=== PATIENT | female | born 1965 | race Caucasian/White ===

== ENCOUNTER 2017-02-04 11:51 | Day surgery (SDC) | payer BC ==
[2017-02-04 12:14] VITALS: BMI 23.0
[2017-02-04 14:49] LABS: BASOPHIL 0.7 % (0-2.0); EOSINOPHIL 5.3 % (0-4.5); MCH 29.4 pg (25.7-33.7); MEAN CELL VOLUME 89.3 fl (80-96); NEUTROPHILS 58.1 % (42.8-82.8); PLATELET COUNT 216 K/MM3 (134-434); RDW 12.7 % (11.6-15.6)
[2017-02-04 15:14] LABS: ALBUMIN 3.8 g/dl (3.4-5.0); ALK PHOS 56 U/L (45-117); ANION GAP 9 (8-16); BILIRUBIN,TOTAL 0.6 mg/dL (0.2-1.0); CALCIUM 8.8 mg/dL (8.5-10.1); CO2 30 mmol/L (21-32); CREATININE 0.8 mg/dL (0.55-1.02); GLUCOSE,RANDOM 78 mg/dL (74-106); SGOT/AST 14 U/L (15-37); SGPT/ALT 20 U/L (12-78); TOT PROT 6.8 g/dl (6.4-8.2)
[2017-02-04 15:14] LABS: PH,URINE 5.5 (5.0-8.0); URINE APPEARANCE CLEAR; URINE BILIRUBIN NEGATIVE (NEGATIVE); URINE BLOOD NEGATIVE (NEGATIVE); URINE COLOR LT. YELLOW; URINE GLUCOSE (UA) NEGATIVE (NEGATIVE); URINE KETONE NEGATIVE (NEGATIVE); URINE NITRITE NEGATIVE (NEGATIVE); URINE PROTEIN NEGATIVE (NEGATIVE); URINE UROBILINOGEN 0.2 mg/dL (0.2-1.0)
--- NOTE | 2017-02-04 15:26 | PDOC ---
History of Present Illness - General History Source: Patient Exam Limitations: No Limitations <Susan Ignacio - Last Filed: 02/04/17 15:21> - History of Present Illness Initial Comments: 02/04/17 15:31 51 y/o F with a PMHx of IBS, SCID, Sjogren's, Raynaud's, GERD presents to the ED with RLQ pain for 3 days. Patient was seen here 2 night ago for the same symptoms and was diagnosed with constipation by X-ray and discharged home. Patient states the symptoms have gotten more severe. She reports associated chills. She also reports recent sinus congestion/pressure and foul green nasal discharge. She reports multiple sinus infections in the past due to her SCID, but usually gets relief with sudafed and nasacort. Patient called her GI doctor who told her to go to the ED for further evaluation. Denies fever, nausea, vomiting, diarrhea. Denies urinary complaints. 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),) - Immunization History Td Vaccination: No TDAP Vaccination: No Immunization Up to Date: Yes - Suicide/Smoking/Psychosocial Hx Smoking Status: Yes Smoking History: Never smoked Have you smoked in the past 12 months: No Number of Cigarettes Smoked Daily: 0 If you are a former smoker, when did you quit?: 1996 Information on smoking cessation initiated: No 'Breaking Loose' booklet given: 03/03/14 Hx Alcohol Use: No Drug/Substance Use Hx: No Substance Use Type: Alcohol <Susan Ignacio - Last Filed: 02/04/17 15:21> <Hanna Self - Last Filed: 02/04/17 15:31> <Anu Vital - Last Filed: 02/04/17 20:05> - Past Medical History Allergies/Adverse Reactions: Allergies Allergy/AdvReac Type Severity Reaction Status Date / Time Penicillins Allergy Mild Rash Verified 11/06/17 12:10 Home Medications: Ambulatory Orders Fexofenadine HCl [Latosha] 180 mg PO DAILY 01/13/12 Ascorbic Acid [Vitamin C -] 500 mg PO BID 12/23/15 Cholecalciferol (Vitamin D3) [Vitamin D3] 2,000 units PO DAILY 12/23/15 Cyanocobalamin [Vitamin B12 -] 500 mcg PO Q2D 12/23/15 Ferrous Sulfate [Slow Fe] 65 mg PO DAILY 12/23/15 Magnesium 400 mg PO DAILY 12/23/15 Ranitidine [Zantac -] 150 mg PO BID #0 tablet 12/23/15 Montelukast Na [Singulair -] 10 mg PO HS 02/03/17 Polyethylene Glycol 3350 [Miralax (For Daily Use) -] 17 gm PO ONCE #1 bottle 08/15 Triamcinolone Acetonide [Nasacort] 2 spray NS DAILY 02/03/17 Review of Systems - Review of Systems Comments:: 02/04/17 15:31 GENERAL/CONSTITUTIONAL: (+) chills. No fever. No weakness. HEAD, EYES, EARS, NOSE AND THROAT: (+) nasal discharge, sinus congestion/ pressure. No change in vision. No ear pain or discharge. No sore throat. CARDIOVASCULAR: No chest pain or shortness of breath. RESPIRATORY: No cough, wheezing, or hemoptysis. GASTROINTESTINAL: (+) RLQ pain. No nausea, vomiting, diarrhea or constipation. GENITOURINARY: No dysuria, frequency, or change in urination. MUSCULOSKELETAL: No joint or muscle swelling or pain. No neck or back pain. SKIN: No rash NEUROLOGIC: No headache, vertigo, loss of consciousness, or change in strength/ sensation. ENDOCRINE: No increased thirst. No abnormal weight change. HEMATOLOGIC/LYMPHATIC: No anemia, easy bleeding, or history of blood clots. ALLERGIC/IMMUNOLOGIC: No hives or skin allergy. <Hanna Self - Last Filed: 02/04/17 15:31> *Physical Exam - Vital Signs Last Vital Signs Temp Pulse Resp BP Pulse Ox 98.3 F 68 16 119/87 99 02/04/17 12:10 02/04/17 12:10 02/04/17 12:10 02/04/17 12:10 02/04/17 12:10 <Susan Ignacio - Last Filed: 02/04/17 15:21> - Vital Signs Last Vital Signs Temp Pulse Resp BP Pulse Ox 98.3 F 68 16 119/87 99 02/04/17 12:10 02/04/17 12:10 02/04/17 12:10 02/04/17 12:10 02/04/17 12:10 - Physical Exam Comments: 02/04/17 15:31 GENERAL: Awake, alert, and fully oriented, in no acute distress HEAD: No signs of trauma EYES: PERRLA, EOMI, sclera anicteric, conjunctiva clear ENT: Auricles normal inspection, hearing grossly normal, nares patent, oropharynx clear without exudates. Moist mucosa NECK: Normal ROM, supple, no lymphadenopathy, JVD, or masses LUNGS: Breath sounds equal, clear to auscultation bilaterally. No wheezes, and no crackles HEART: Regular rate and rhythm, normal S1 and S2, no murmurs, rubs or gallops ABDOMEN: RLQ tenderness to palpation. No CVA tenderness. Soft, normoactive bowel sounds. No guarding, no rebound. No masses EXTREMITIES: Normal range of motion, no edema. Warm, well perfused. NEUROLOGICAL: A&Ox3 <Hanna Self - Last Filed: 02/04/17 15:31> - Vital Signs Last Vital Signs Temp Pulse Resp BP Pulse Ox 98.3 F 68 16 119/87 99 02/04/17 12:10 02/04/17 12:10 02/04/17 12:10 02/04/17 12:10 02/04/17 12:10 <Anu Vital - Last Filed: 02/04/17 20:05> ED Treatment Course - LABORATORY CBC & Chemistry Diagram: 02/04/17 14:35 02/04/17 14:35 - ADDITIONAL ORDERS Additional order review: Laboratory Results 02/04/17 02/04/17 14:35 14:21 Sodium 140 Potassium 3.7 Chloride 101 Carbon Dioxide 30 Anion Gap 9 BUN 8 D Creatinine 0.8 Creat Clearance w eGFR > 60 Random Glucose 78 D Calcium 8.8 Total Bilirubin 0.6 D AST 14 L D ALT 20 Alkaline Phosphatase 56 Total Protein 6.8 Albumin 3.8 Urine HCG, Qual Negative 02/04/17 14:35 RBC 4.79 MCV 89.3 MCHC 33.0 RDW 12.7 MPV 7.0 L Neutrophils % 58.1 D Lymphocytes % 23.4 D Monocytes % 12.5 H D Eosinophils % 5.3 H D Basophils % 0.7 - RADIOLOGY Radiology Studies Ordered: Category Date Time Status ABDOMEN & PELVIS CT WITH CONTR [CT] Stat CT Scan 02/04/17 14:11 Ordered <Susan Ignacio - Last Filed: 02/04/17 15:21> - LABORATORY CBC & Chemistry Diagram: 02/04/17 14:35 02/04/17 14:35 - ADDITIONAL ORDERS Additional order review: Laboratory Results 02/04/17 02/04/17 14:35 14:21 Sodium 140 Potassium 3.7 Chloride 101 Carbon Dioxide 30 Anion Gap 9 BUN 8 D Creatinine 0.8 Creat Clearance w eGFR > 60 Random Glucose 78 D Calcium 8.8 Total Bilirubin 0.6 D AST 14 L D ALT 20 Alkaline Phosphatase 56 Total Protein 6.8 Albumin 3.8 Urine HCG, Qual Negative 02/04/17 14:35 RBC 4.79 MCV 89.3 MCHC 33.0 RDW 12.7 MPV 7.0 L Neutrophils % 58.1 D Lymphocytes % 23.4 D Monocytes % 12.5 H D Eosinophils % 5.3 H D Basophils % 0.7 <Hanna Self - Last Filed: 02/04/17 15:31> - LABORATORY CBC & Chemistry Diagram: 02/04/17 14:35 02/04/17 14:35 - ADDITIONAL ORDERS Additional order review: Laboratory Results 02/04/17 02/04/17 02/04/17 14:35 14:21 14:21 Sodium 140 Potassium 3.7 Chloride 101 Carbon Dioxide 30 Anion Gap 9 BUN 8 D Creatinine 0.8 Creat Clearance w eGFR > 60 Random Glucose 78 D Calcium 8.8 Total Bilirubin 0.6 D AST 14 L D ALT 20 Alkaline Phosphatase 56 Total Protein 6.8 Albumin 3.8 Urine Color Lt. yellow Urine Appearance Clear Urine pH 5.5 Ur Specific [place] <= 1.005 Urine Protein Negative Urine Glucose (UA) Negative Urine Ketones Negative Urine Blood Negative Urine Nitrite Negative Urine Bilirubin Negative Urine Urobilinogen 0.2 Urine HCG, Qual Negative 02/04/17 14:35 RBC 4.79 MCV 89.3 MCHC 33.0 RDW 12.7 MPV 7.0 L Neutrophils % 58.1 D Lymphocytes % 23.4 D Monocytes % 12.5 H D Eosinophils % 5.3 H D Basophils % 0.7 - RADIOLOGY Radiology Studies Ordered: Category Date Time Status CHEST PA & LAT [RAD] Stat Radiology 02/04/17 19:33 Ordered <AmanuelLiama Laya - Last Filed: 02/04/17 20:05> Medical Decision Making - Medical Decision Making 02/04/17 15:23 51 yo F with h/o recurrent sinusitis, SCID, irritable bowel ( followed dr. andres) recently evaluated in ED for rlq pain, here with persistant sxs. no n/ v no f, does have chills. no urinary complaints. also c/o nasal pressure. sinus pain, nasal discharge, green. on exam awake alert . rlq ttp. no rebound no guarding. no cva tenderness. plan: ct a/p r/o appendicitis. differential irritable bowel, uti pyelo plan ct a /p labs ivf, pain control. <Susan Ignacio - Last Filed: 02/04/17 15:21> *DC/Admit/Observation/Transfer <Susan Ignacio - Last Filed: 02/04/17 15:21> - Attestations Scribe Attestion: 02/04/17 15:31 Documentation prepared by Hanna Self, acting as medical office receptionist for Susan Ignacio MD. <Hanna Self - Last Filed: 02/04/17 15:31> - Discharge Dispostion Admit: Yes <Anu Vital - Last Filed: 02/04/17 20:05> Diagnosis at time of Disposition: Appendicitis Qualifiers: Appendicitis type: acute appendicitis Acute appendicitis type: other Qualified Code(s): K35.89 - Other acute appendicitis; K35.89 - Other acute appendicitis - Referrals Referrals: Jon Mayo MD [Primary Care Provider] -
[2017-02-04] MEDS ORDERED: SODIUM CHLORIDE 1,000 ML IV SCH (18:30)
--- NOTE | 2017-02-04 20:16 | CONSULT ---
Consult - text type - Consultation Consultation Note: Pt seen and examined. Admitted for OR. See H&P for details. Dayo MILLER
--- NOTE | 2017-02-04 20:22 | HP ---
Admitting History and Physical - Primary Care Physician PCP: Jon Mayo - Admission Chief Complaint: RLQ pain, n/v History of Present Illness: 51yo F with medical history including multiple autoimmune conditions, frequent sinus infections (more since a vaccination last year, possibly pneumococcal), including a current one, IBS-D, GERD, h/o anemia of unknown etiology couple years ago, amenorrhea, esophageal spasms -- began having RLQ pain a couple of days ago, which she thought would improve, associated with anorexia and n/v. She came to ER Saturday night/Saturday morning, had AXR and was told she was constipated, given stool softeners and suppository and told to return if she got worse. She tried using the medications, and had an enema at home, but the pain persisted, and she has been unable to keep anything solid down for a couple of days. She went to see Dr. Reyes, her GI doctor, who sent her to ER for evaluation. She has sipped on water today and tolerated. Oral contrast is being evacuated multiple times since CT scan. No fevers. In the ER Saturday am early, wbc was 12, today it is 5. Afebrile. CT today shows mildly thickened appendix with no gross surrounding inflammatory changes but possible early acute appendicitis. No obstruction, no free air or fluid, no abscess. 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 brain lesions) Pulmonary: Yes: Asthma (no inhalers for several years) Gastrointestinal: Yes: GERD, Irritable Bowel Disease (with diarrhea), Other ( esophageal spasms) ...: No Heme/Onc: Yes: Anemia Rheumatology: Yes: Other (Sjogrens, Raynauds Phenomenon, untyped autoimmune disorder) ENT: Yes: Sinusitis - Past Surgical History Additional Past Surgical History: sinus surgery, toe surgery x2, right deltoid reattachment - Smoking History Smoking history: Current some day smoker Have you smoked in the past 12 months: Yes Aproximately how many cigarettes per day: 2 (smokes on weekends, only when drinking, amount varies) If you are a former smoker, when did you quit?: 1996 - but now smokes socially - Alcohol/Substance Use Hx Alcohol Use: Yes (socially/weekends) Number of Drinks Daily: 1 (varies on weekends) History of Substance Use: reports: None - Social History Usual Living Arrangement: Yes: With Spouse ADL: Independent Occupation: teacher, 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 Medications - Allergies Allergies/Adverse Reactions: Allergies Allergy/AdvReac Type Severity Reaction Status Date / Time Penicillins Allergy Mild Rash Verified 02/04/17 12:10 - Home Medications Home Medications: Ambulatory Orders Fexofenadine HCl [Latosha] 180 mg PO DAILY 01/13/12 Ascorbic Acid [Vitamin C -] 500 mg PO BID 12/23/15 Cholecalciferol (Vitamin D3) [Vitamin D3] 2,000 units PO DAILY 12/23/15 Cyanocobalamin [Vitamin B12 -] 500 mcg PO Q2D 12/23/15 Ferrous Sulfate [Slow Fe] 65 mg PO DAILY 12/23/15 Magnesium 400 mg PO DAILY 12/23/15 Ranitidine [Zantac -] 150 mg PO BID #0 tablet 12/23/15 Montelukast Na [Singulair -] 10 mg PO HS 02/03/17 Polyethylene Glycol 3350 [Miralax (For Daily Use) -] 17 gm PO ONCE #1 bottle 08/15 Triamcinolone Acetonide [Nasacort] 2 spray NS DAILY 02/03/17 Family Disease History - Family Disease History Family Disease History: CA: Mother ( 29 years ago of uterine CA) Other Family History: aunt had ovarian CA young; maternal side with cancers; also weight-related DM in family Review of Systems - Review of Systems Constitutional: reports: Loss of Appetite. denies: Chills, Fever Eyes: denies: Blurred Vision, Recent Change in Vision HENT: reports: Difficult Swallowing (sometimes gets esophageal spasms), Hearing Loss (left side vestibular loss), Nasal Congestion. denies: Throat Pain Neck: denies: Stiffness, Tenderness Cardiovascular: denies: Chest Pain, Palpitations Respiratory: reports: Cough (from postnasal drip). denies: SOB, Wheezing Gastrointestinal: reports: Abdominal Pain (with hpi), Diarrhea, Nausea (with hpi ), Vomiting (with hpi). denies: Constipation Genitourinary: denies: Burning, Dysuria Musculoskeletal: denies: Back Pain, Joint Pain Integumentary: denies: Change in Color, Rash Neurological: reports: Dizziness (at times). denies: Headache Endocrine: denies: Increased Hunger, Increased Thirst Psychiatric: denies: Anxiety, Depression Physical Examination Vital Signs: Vital Signs Temperature 98.3 F 02/04/17 12:10 Pulse Rate 68 02/04/17 12:10 Respiratory Rate 16 02/04/17 12:10 Blood Pressure 119/87 02/04/17 12:10 O2 Sat by Pulse Oximetry (%) 99 02/04/17 12:10 Constitutional: Yes: Well Nourished, No Distress, Calm Eyes: Yes: Conjunctiva Clear, EOM Intact HENT: Yes: Atraumatic, Normocephalic, Nasal Congestion (mild) Neck: Yes: Supple, Trachea Midline Cardiovascular: Yes: Regular Rate and Rhythm. No: Murmur Respiratory: Yes: Regular, CTA Bilaterally. No: Wheezes Gastrointestinal: Yes: Normal Bowel Sounds, Soft, Distention (mild), Tenderness (RLQ with referred tenderness from LLQ/suprapubic to RLQ, no guarding, focal rebound). No: Tenderness, Epigastrium ...Rectal Exam: Yes: Deferred Renal/: No: CVA Tenderness - Left, CVA Tenderness - Right Musculoskeletal: No: Joint Stiffness, Joint Swelling Extremities: No: Cool, Cyanosis Edema: No Peripheral Pulses WNL: Yes Integumentary: Yes: Body Piercing (umbilical, nasal). No: Jaundice, Rash Neurological: Yes: Alert, Oriented. No: Unsteady Gait Psychiatric: Yes: Alert, Oriented Labs: CBC, BMP 02/04/17 14:35 02/04/17 14:35 CMP Sodium 140 mmol/L (136-145) 02/04/17 14:35 Potassium 3.7 mmol/L (3.5-5.1) 02/04/17 14:35 Chloride 101 mmol/L (98-107) 02/04/17 14:35 Carbon Dioxide 30 mmol/L (21-32) 02/04/17 14:35 Anion Gap 9 (8-16) 02/04/17 14:35 BUN 8 mg/dL (7-18) D 02/04/17 14:35 Creatinine 0.8 mg/dL (0.55-1.02) 02/04/17 14:35 Creat Clearance w eGFR > 60 (>60) 02/04/17 14:35 Random Glucose 78 mg/dL (74-106) D 02/04/17 14:35 Calcium 8.8 mg/dL (8.5-10.1) 02/04/17 14:35 Total Bilirubin 0.6 mg/dL (0.2-1.0) D 02/04/17 14:35 AST 14 U/L (15-37) L D 02/04/17 14:35 ALT 20 U/L (12-78) 02/04/17 14:35 Alkaline Phosphatase 56 U/L (45-117) 02/04/17 14:35 Total Protein 6.8 g/dl (6.4-8.2) 02/04/17 14:35 Albumin 3.8 g/dl (3.4-5.0) 02/04/17 14:35 wbc was 12 yesterday early am in ER Imaging - Results Cat Scan: Report Reviewed (thickened appendix, possible early appendicitis), Image Reviewed Problem List - Problems (1) Acute appendicitis with localized peritonitis Assessment/Plan: admit to surgery NPO/IVF until after surgery pain meds prn perioperative antibiotics Discussed with patient risks, benefits and alternatives of laparoscopic possible open appendectomy, including but not limited to bleeding, infection, injury to adjacent structures, leak or injury, intraabdominal abscess, need for further procedures, ; alternatives include antibiotics, delayed or no surgery - risks of this include failure of nonoperative therapy, perforation, sepsis, recurrence, . Patient desires to proceed with operation - will take to OR for above. Informed consent signed for same. GI/DVT prophylaxis as indicated Code(s): K35.3 - ACUTE APPENDICITIS WITH LOCALIZED PERITONITIS (2) Sinusitis Code(s): J32.9 - CHRONIC SINUSITIS, UNSPECIFIED Qualifiers: Sinusitis location: unspecified location Chronicity: acute Recurrence: recurrent Qualified Code(s): J01.91 - Acute recurrent sinusitis, unspecified; J01.91 - Acute recurrent sinusitis, unspecified (3) Vertigo Code(s): R42 - DIZZINESS AND GIDDINESS (4) Sjogren's syndrome Code(s): M35.00 - SICCA SYNDROME, UNSPECIFIED Qualifiers: Sjogren's organ involvement: unspecified organ involvement Qualified Code(s): M35.00 - Sicca syndrome, unspecified; M35.00 - Sicca syndrome , unspecified; M35.00 - Sicca syndrome, unspecified; M35.00 - Sicca syndrome, unspecified (5) Raynaud's phenomenon Code(s): I73.00 - RAYNAUD'S SYNDROME WITHOUT GANGRENE Qualifiers: Raynaud?s-associated gangrene presence: without gangrene Qualified Code(s): I73.00 - Raynaud's syndrome without gangrene; I73.00 - Raynaud's syndrome without gangrene (6) Autoimmune disease, not elsewhere classified Code(s): M35.9 - SYSTEMIC INVOLVEMENT OF CONNECTIVE TISSUE, UNSPECIFIED
[2017-02-04 21:00] LABS: INR 1.06 (0.82-1.09)
[2017-02-04] MEDS ORDERED: morphine CARPU-JECT 2 MG/1 ML DISP.SYRIN IVPUSH PRN (21:17)
[2017-02-04] MEDS ORDERED: ONDANSETRON 4 MG/2 ML VIAL IVPUSH PRN (21:22)
--- NOTE | 2017-02-04 22:03 | CON.ID ---
Consult Consult Specialty:: infectious diseases Reason for Consultation:: appendicitis,peritonitis abx mgmt - History of Present Illness Chief Complaint: abd pain History of Present Illness: 51yo F with medical history including multiple autoimmune conditions, , IBS-D, GERD, h/o anemia amenorrhea, esophageal spasms admitted for RLQ pain since couple of days which she thought would improve, associated with anorexia and n/ v. She came to ER Saturday night/Saturday morning, had AXR and was told she was constipated, given stool softeners and suppository and told to return if she got worse. patient did not improve and came back to the er and was diagnosed with appendicitis, surgery evaluated her and patient was taken to the operating room and underwent appendectomy patients main complain is abd pain and no flatus yet - History Source History Provided By: Patient Limitations to Obtaining History: No Limitations - Past Medical History EVENT DECORATOR: Yes: Other (Nonspecific brain lesions) Pulmonary: Yes: Asthma (no inhalers for several years) Gastrointestinal: Yes: GERD, Irritable Bowel Disease (with diarrhea), Other ( esophageal spasms) ...: No Rheumatology: Yes: Other (Sjogrens, Raynauds Phenomenon, untyped autoimmune disorder) ENT: Yes: Sinusitis - Alcohol/Substance Use Hx Alcohol Use: Yes (socially/weekends) Number of Drinks Daily: 1 (varies on weekends) History of Substance Use: reports: None - Smoking History Smoking history: Current some day smoker Have you smoked in the past 12 months: Yes Aproximately how many cigarettes per day: 2 (smokes on weekends, only when drinking, amount varies) If you are a former smoker, when did you quit?: 1996 - but now smokes socially - Social History Usual Living Arrangement: With Spouse ADL: Independent Occupation: teacher, 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 Medications - Allergies Allergies/Adverse Reactions: Allergies Allergy/AdvReac Type Severity Reaction Status Date / Time Penicillins Allergy Mild Rash Verified 02/04/17 12:10 - Home Medications Home Medications: Ambulatory Orders Fexofenadine HCl [Latosha] 180 mg PO DAILY 01/13/12 Ascorbic Acid [Vitamin C -] 500 mg PO BID 12/23/15 Cholecalciferol (Vitamin D3) [Vitamin D3] 2,000 units PO DAILY 12/23/15 Cyanocobalamin [Vitamin B12 -] 500 mcg PO Q2D 12/23/15 Magnesium 400 mg PO DAILY 12/23/15 Ranitidine [Zantac -] 150 mg PO BID #0 tablet 12/23/15 Montelukast Na [Singulair -] 10 mg PO HS 02/03/17 Triamcinolone Acetonide [Nasacort] 2 spray NS DAILY 02/03/17 Acetaminophen [Tylenol .Regular Strength -] 650 mg PO Q6H PRN #0 tablet Fluconazole [Diflucan] 150 mg PO ONCE PRN #2 tablet 02/05/17 Ibuprofen [Motrin -] 600 mg PO Q6H PRN #0 tablet 02/05/17 Family Disease History - Family Disease History Family Disease History: CA: Mother ( 29 years ago of uterine CA) Other Family History: aunt had ovarian CA young; maternal side with cancers; also weight-related DM in family Review of Systems - Review of Systems Constitutional: reports: Other Eyes: reports: No Symptoms HENT: reports: No Symptoms Neck: reports: No Symptoms Cardiovascular: reports: No Symptoms Respiratory: reports: No Symptoms Gastrointestinal: reports: Abdominal Pain, Vomiting Genitourinary: reports: No Symptoms Musculoskeletal: reports: No Symptoms Integumentary: reports: No Symptoms Neurological: reports: No Symptoms Endocrine: reports: No Symptoms Hematology/Lymphatic: reports: No Symptoms Psychiatric: reports: No Symptoms Physical Exam Vital Signs: Vital Signs Temperature 97.7 F 02/04/17 20:23 Pulse Rate 77 02/04/17 20:23 Respiratory Rate 18 02/04/17 20:23 Blood Pressure 116/84 02/04/17 20:23 O2 Sat by Pulse Oximetry (%) 97 02/04/17 20:23 Constitutional: Yes: Well Nourished, Calm, Moderate Distress Eyes: Yes: Conjunctiva Clear HENT: Yes: Atraumatic, Normocephalic Neck: Yes: Supple Cardiovascular: Yes: Regular Rate and Rhythm Respiratory: Yes: Regular, CTA Bilaterally Gastrointestinal: Yes: Soft, Hypoactive Bowel Sounds Musculoskeletal: Yes: WNL Extremities: Yes: WNL Wound/Incision: Yes: Clean/Dry, Dressing Dry and Intact Neurological: Yes: Alert, Oriented Psychiatric: Yes: Alert, Oriented Labs: CBC, BMP 02/04/17 14:35 02/04/17 14:35 Imaging - Results Chest X-ray: Report Reviewed, Image Reviewed Cat Scan: Report Reviewed, Image Reviewed Assessment/Plan Problem List - Problems (1) Acute appendicitis with localized peritonitis Code(s): K35.3 - ACUTE APPENDICITIS WITH LOCALIZED PERITONITIS (2) Sinusitis Code(s): J32.9 - CHRONIC SINUSITIS, UNSPECIFIED Qualifiers: Sinusitis location: unspecified location Chronicity: acute Recurrence: recurrent Qualified Code(s): J01.91 - Acute recurrent sinusitis, unspecified; J01.91 - Acute recurrent sinusitis, unspecified (3) Vertigo Code(s): R42 - DIZZINESS AND GIDDINESS (4) Sjogren's syndrome Code(s): M35.00 - SICCA SYNDROME, UNSPECIFIED Qualifiers: Sjogren's organ involvement: unspecified organ involvement Qualified Code(s): M35.00 - Sicca syndrome, unspecified; M35.00 - Sicca syndrome , unspecified; M35.00 - Sicca syndrome, unspecified; M35.00 - Sicca syndrome, unspecified (5) Raynaud's phenomenon Code(s): I73.00 - RAYNAUD'S SYNDROME WITHOUT GANGRENE Qualifiers: Raynaud?s-associated gangrene presence: without gangrene Qualified Code(s): I73.00 - Raynaud's syndrome without gangrene; I73.00 - Raynaud's syndrome without gangrene (6) Autoimmune disease, not elsewhere classified Code(s): M35.9 - SYSTEMIC INVOLVEMENT OF CONNECTIVE TISSUE, UNSPECIFIED patient allergic to pcn patient got couple of doses of meropenam plan continue according to surgery will stop abx pain main issue
[2017-02-04] MEDS ORDERED: MEROPENEM 1 GM PUSH 20 ML IVPUSH SCH (22:15)
[2017-02-04] MEDS ORDERED: MIDAZOLAM HCL 2 MG/2 ML SINGLE DOSE VIAL ONE (22:15)
[2017-02-04] MEDS ORDERED: PROPOFOL 20 ML ONE ×2 (22:15)
[2017-02-04] MEDS ORDERED: ROCURONIUM BROMIDE 50 MG/5 ML VIAL ONE (22:16)
[2017-02-04] MEDS ORDERED: DEXAMETHASONE SOD PHOSPHATE 4 MG/1 ML VIAL ONE (22:16)
[2017-02-04] MEDS ORDERED: LIDOCAINE HCL/PF 2% SDV 5ML VIAL ONE (22:16)
[2017-02-04] MEDS ORDERED: ONDANSETRON 4 MG/2 ML VIAL ONE (22:16)
[2017-02-04] MEDS ORDERED: SUCCINYLCHOLINE CHLORIDE 200 MG/10 ML VIAL ONE (22:17)
[2017-02-04 22:18] LABS: URINE LEUK ESTERASE Negative (NEGATIVE)
[2017-02-04] MEDS ORDERED: GLYCOPYRROLATE 0.2 MG/1 ML VIAL ONE ×2 (22:21→23:30)
[2017-02-04] MEDS ORDERED: MEROPENEM 1 GM VIAL (RESTRICTED TO ID) IVPB ONE (22:30)
[2017-02-04] MEDS ORDERED: IBUPROFEN 800 MG/8 ML IJ IVPB PRN (23:02)
[2017-02-04] MEDS ORDERED: LACTATED RINGERS SOLUTION 1,000 ML IV SCH (23:15)
[2017-02-04] MEDS ORDERED: NEOSTIGMINE METHYLSULFATE 0.5 MG/ML - 10 ML MDV ONE (23:30)
[2017-02-04] MEDS ORDERED: BUPIVACAINE HCL/PF (5 MG/ML) 30 ML VIAL IJ ONE (23:37)
--- NOTE | 2017-02-05 00:03 | OP ---
Operative Note - Note: Operative Date: 02/04/17 Pre-Operative Diagnosis: acute appendicitis with localized peritonitis Operation: laparoscopic appendectomy Findings: mildly inflamed/injected appendix, no fluid in RLQ Post-Operative Diagnosis: Same as Pre-op Surgeon: Chava Bar Anesthesiologist/BRANCH LOGISTICS SUPERVISOR: Marina Thompson Anesthesia: General, Local (10ml 0.5% marcaine) Specimens Removed: appendix to pathology Estimated Blood Loss (mls): 2 Drains & Tubes with Location: [place] removed at end of case Drains, Volume Out (mls): 100 (UOP) Fluid Volume Replaced (mls): 1,000 (crystalloid) Operative Report Dictated: Yes
[2017-02-05] MEDS ORDERED: ACETAMINOPHEN INJECTION 100 ML IVPB ONE (00:05)
[2017-02-05] MEDS: ACETAMINOPHEN 1000 MG/100 ML VIAL (NON FORMULARY) IVPB ONE ×2 (00:10→07:28)
[2017-02-05] MEDS ORDERED: oxyCODONE HCL 5 MG TABLET PO PRN (00:12)
[2017-02-05] MEDS ORDERED: morphine CARPU-JECT 2 MG/1 ML DISP.SYRIN IVPUSH PRN ×2 (00:14→00:20)
[2017-02-05] MEDS ORDERED: LACTATED RINGERS SOLUTION 1,000 ML IV SCH (00:20)
[2017-02-05] MEDS ORDERED: ONDANSETRON 4 MG/2 ML VIAL IVPUSH PRN (00:20)
[2017-02-05] MEDS: oxyCODONE HCL 5 MG TABLET PO PRN ×2 (01:20→08:35)
[2017-02-05] MEDS ORDERED: MEROPENEM 1 GM PUSH 20 ML IVPUSH SCH (02:00)
[2017-02-05] MEDS ORDERED: MEROPENEM 1 GM in DEXTROSE 5%-WATER - 100 ML IVPB SCH (02:00)
[2017-02-05] MEDS ORDERED: IBUPROFEN 800 MG/8 ML IJ IVPB ONE ×2 (03:00)
[2017-02-05] MEDS: ACETAMINOPHEN 325 MG TABLET (FP) PO PRN ×2 (05:57→10:14)
[2017-02-05] MEDS: MEROPENEM 1 GM PUSH 20 ML IVPUSH SCH ×2 (05:58→14:07)
[2017-02-05] MEDS ORDERED: ACETAMINOPHEN 325 MG TABLET (FP) PO PRN (06:00)
--- NOTE | 2017-02-05 08:36 | PN ---
Progress Note (short form) - Note Progress Note: Post op day#1.S/P Laproscopin appendectomy under [place] uneventful.Patient stable.No any anesthesia related problem.Patient DC from the anesthesia care.
[2017-02-05] MEDS ORDERED: IBUPROFEN 600 MG TABLET (FP) PO PRN ×2 (09:00)
[2017-02-05] MEDS ORDERED: RANITIDINE HCL 150 MG TABLET (FP) PO SCH ×2 (10:00)
[2017-02-05] MEDS ORDERED: FEXOFENADINE HCL 180 MG PO SCH (10:00)
[2017-02-05] MEDS ORDERED: FLUTICASONE PROP 0.05% 16 GM NASAL SPRAY NS SCH (10:00)
[2017-02-05] MEDS ORDERED: ASCORBIC ACID 500 MG TABLET (FP) PO SCH ×2 (10:00)
[2017-02-05] MEDS ORDERED: CHOLECALCIFEROL (VITAMIN D3) 1,000 UNIT TABLET (FP) PO SCH (10:00)
[2017-02-05] MEDS ORDERED: TRIAMCINOLONE ACETONIDE NS SCH (10:00)
[2017-02-05] MEDS ORDERED: LORATADINE 10 MG TABLET PO SCH (10:00)
--- NOTE | 2017-02-05 11:04 | DS ---
Physical Examination Vital Signs: Vital Signs Temperature 98.4 F 02/05/17 09:00 Pulse Rate 60 02/05/17 09:00 Respiratory Rate 20 02/05/17 09:00 Blood Pressure 97/58 02/05/17 09:00 O2 Sat by Pulse Oximetry (%) 99 02/05/17 02:50 Findings/Remarks: Pt seen up in room and examined sitting in chair. Ambulating well, tolerated po , voiding well. No more BMs. Has had tylenol and oxycodone, but wants to stick with nonnarcotics for pain prn. Will use ibuprofen next. Some pain to right of umbilicus and RLQ. Using IS well and coughing with good effort. No fever or nausea. Constitutional: Yes: Well Nourished, No Distress, Calm Eyes: Yes: Conjunctiva Clear, EOM Intact Cardiovascular: Yes: Regular Rate and Rhythm. No: Murmur Respiratory: Yes: Regular, CTA Bilaterally Gastrointestinal: Yes: Soft, Distention (mild), Hypoactive Bowel Sounds, Tenderness (mild RLQ and mid-abdomen, incisional at umbilicus, no R/G) Extremities: No: Cool, Cyanosis Edema: No Integumentary: Yes: Body Piercing, Incision (x3 dressed). No: Rash Wound/Incision: Yes: Steri Strips (under dressings), Dressing Dry and Intact (x2 , umbilical dressing with some pink and dark staining), Dressing Removed ( umbilical dressing changed for clean/dry gauze and tegaderm) Neurological: Yes: Alert, Oriented Labs: no new labs Discharge Summary Reason For Visit: APPENDICITIS Current Active Problems Acute appendicitis with localized peritonitis (Acute) Autoimmune disease, not elsewhere classified (Acute) Raynaud's phenomenon (Acute) Sjogren's syndrome (Acute) GERD Sinusitis Procedures: Principal: laparoscopic appendectomy Hospital Course: 51yo F with multiple autoimmune disorders, IBS-D and current sinusitis presented to ER for second time in a couple of days with RLQ pain. She had been discharged with a bowel regimen the day before, and seen her GI doctor, who sent her for reevaluation. WBC had been 12, was now 5, but CT showed mildly thickened appendix with possible early acute appendicitis. She was given fluids and taken to OR for uneventful laparoscopic appendectomy with finding of injected/mildly inflamed appendix. Perioperative Meropenem was given x 3 total doses (1 in OR, 2 postop). Postop course has been unremarkable. She has ambulated, voided, tolerated po, and is using oral pain medications only. She is discharged home to follow up in 2 weeks with surgery and her PMD in 1-2 weeks. Condition: Improved - Instructions Diet, Activity, Other Instructions: Postoperative instructions: You had a laparoscopic appendectomy on 02/04/[address] Chava Bar of [facility]. Activity: Resume your usual activities gradually, but no heavy exertion or lifting more than 10-15 pounds for 2-3 weeks, then gradually resume usual activities. Remove dressings 48 hours after surgery; sticky tapes underneath will fall off by themselves. You may shower daily starting then, just pat the incision areas dry. No bath or swimming until skin incisions have healed. Eat lightly at first, but advance to your usual diet as tolerated. Pain: For pain, you may use and alternate Tylenol (acetaminophen) and/or ibuprofen every 6 hours each as needed; this means that you can take one OR the other at 3-hour intervals. If you are prescribed a Tylenol/narcotic combination for severe pain, use it instead of plain Tylenol as needed and switch back when your pain starts decreasing. Do not take more than 4000mg of acetaminophen in a day. Take medications as prescribed or indicated on the labeling. Follow-up: Call Dr. Bar's office at [phone] to make your postop appointment (Saturday ~2 weeks after surgery). Clinic is held in the [facility] on the first floor of [facility]. Call the office if you have: * increasing pain not responsive to pain medication * fever of 101F or higher * vomiting * unusual or increasing bleeding or drainage from wounds * increasing redness or swelling at wound sites * inability to urinate Also, see Dr. Mayo within 1-2 weeks. Referrals: Jon Mayo MD [Primary Care Provider] - Disposition: HOME - Home Medications Comprehensive Discharge Medication List: Ambulatory Orders Fexofenadine HCl [Latosha] 180 mg PO DAILY 01/13/12 Ascorbic Acid [Vitamin C -] 500 mg PO BID 12/23/15 Cholecalciferol (Vitamin D3) [Vitamin D3] 2,000 units PO DAILY 12/23/15 Cyanocobalamin [Vitamin B12 -] 500 mcg PO Q2D 12/23/15 Ferrous Sulfate [Slow Fe] 65 mg PO DAILY 12/23/15 Magnesium 400 mg PO DAILY 12/23/15 Ranitidine [Zantac -] 150 mg PO BID #0 tablet 12/23/15 Montelukast Na [Singulair -] 10 mg PO HS 02/03/17 Polyethylene Glycol 3350 [Miralax (For Daily Use) -] 17 gm PO ONCE #1 bottle 08/15 Triamcinolone Acetonide [Nasacort] 2 spray NS DAILY 02/03/17 Tylenol 650mg PO Q6H PRN pain Ibuprofen 600mg PO Q6H PRN pain (alternating with tylenol) Diflucan 150mg PO ONCE PRN yeast infection, to repeat x1 in 5D if needed
[2017-02-05 15:36] VITALS: BP 94/59; PULSE 52; TEMP 98.1
[2017-02-05] MEDS ORDERED: MONTELUKAST NA 10 MG TABLET PO SCH ×2 (22:00)
--- NOTE | 2017-02-06 14:01 | PATH ---
Surgical Pathology Report Patient Name: CHAO UMANA [facility]. Rec. #: [id number] /Age/Gender: 1965 (Age: 51) / F Account: [id number] Location: AMBULATORY SURG Taken: 02/04/2017 Received: 02/05/2017 Reported: 02/06/2017 Physicians: Chava Bar M.D. Specimen(s) Received APPENDIX Clinical History Acute appendicitis with localized peritonitis Final Diagnosis APPENDIX, APPENDECTOMY: ACUTE APPENDICITIS AND PERIAPPENDICITIS. Electronically Signed Demian Demarco M.D. Gross Description Received in formalin, labeled "appendix," is a 6 cm. in length vermiform appendix with a stapled margin of resection and moderate attached fat. The serosa is romano-pink and smooth. Sectioning reveals a focally hemorrhagic lumen. The wall of the appendix averages 0.1 cm. in thickness. [employer] sections are submitted in one cassette. 02/05/2017 saudi02/05/2017
== END 2017-02-05 17:02 | disposition home or self-care (01) ==
LOC: JER 11:51 → JASUSAT 20:05 → J8W 02-05 01:14 → JASUSAT 02-05 17:02
PROVIDERS: ATTEND Surgery
PROC: 0DTJ4ZZ Resection of Appendix, Percutaneous Endoscopic Approach (ICD-10-PCS; principal; 2017-02-04 22:00)
DX: K35.3 Acute appendicitis with localized peritonitis (principal); M35.00 Sjogren syndrome, unspecified; I73.00 Raynaud's syndrome without gangrene; J32.9 Chronic sinusitis, unspecified; M35.9 Systemic involvement of connective tissue, unspecified; J45.909 Unspecified asthma, uncomplicated; Z72.0 Tobacco use
CPT/HCPCS: 36415; 71020-TC; 74177-TC; 80053; 81003; 84703; 85025; 85610; 86850; 86900; 86901; 88304-TC; 94760; 99283-25